=== PATIENT | female | born 1950 | race Caucasian/White ===

== ENCOUNTER 2023-09-07 15:07 | Emergency (ER) | payer OTHER, MEDICAID ==
[~2023-09-07] VITALS: Ht 154.9 cm; Wt 59.1 kg
[~2023-09-07 15:07] MED LIST: ALBU18HF12 IH; FLUT1BLS IH; FURO20 PO; OMEP20 PO; PEMB100V INJ; PRED-549 PO; PRED-554 PO
[2023-09-07 15:08] VITALS: BP 130/50; PULSE 99; RESP 20; TEMP 98.1
[2023-09-07] MEDS ORDERED: HYDR-4268 TP (17:51)
[2023-09-07] MEDS ORDERED: CEPH-558 PO (17:51)
[2023-09-07] MEDS ORDERED: PRED-554 PO (17:51)
[2023-09-07] MEDS: PredniSONE 20 MG TABLET PO ONE (17:54)
== END 2023-09-07 18:07 | disposition home or self-care (01) ==
LOC: EMS 15:13
DX: I77.6 Arteritis, unspecified (principal); R05.9 Cough, unspecified; J44.9 Chronic obstructive pulmonary disease, unspecified; Z85.118 Personal history of other malignant neoplasm of bronchus and lung
CPT/HCPCS: 99283; J7512

== ENCOUNTER 2023-10-01 20:00 | Inpatient (IN) | payer MEDICAID, OTHER ==
[~2023-10-01] VITALS: Ht 165.1 cm; Wt 54.9 kg
[~2023-10-01 20:00] MED LIST changes: +CEPH-558 PO; -FURO20 PO; +FURO20TA5 PO; +HYDR-4268 TP
[2023-10-01 20:57] LABS: BASOPHILS % (AUTO) 1.1 % (0.0-2.0); EOSINOPHILS % (AUTO) 0 % (1.0-6.0); HEMATOCRIT 39.9 % (36-46); HEMOGLOBIN 12.9 g/dL (12.0-16.0); LYMPHOCYTES # (AUTO) 1.3 K/uL (1.0-4.8); MEAN CORPUSCULAR HEMOGLOBIN 29.2 pg (26.0-34.0); MEAN CORPUSCULAR HGB CONC 32.3 G/dL (31.0-37.0); MEAN CORPUSCULAR VOLUME 90 fL (80-100); MONOCYTES # (AUTO) 1.7 K/uL (0.1-1.0); MONOCYTES % (AUTO) 11.7 % (2.0-9.0); NEUTROPHILS # (AUTO) 11.6 K/uL (1.8-7.7); NEUTROPHILS % (AUTO) 78.2 % (40.0-70.0); PLATELET COUNT (AUTO) 415 K/uL (150-450); RED BLOOD CELL COUNT(AUTO) 4.42 MIL/uL (4.00-5.20); RED CELL DISTRIBUTION WIDTH 14.3 % (11.5-14.5); WHITE BLOOD COUNT (AUTO) 14.9 K/uL (4.5-11.0)
[2023-10-01 21:06] LABS: CREATININE 0.92 mg/dL (0.60-1.30); POTASSIUM 3.5 mmol/L (3.5-5.1)
[2023-10-01] MEDS ORDERED: 0.9% SODIUM CHLORIDE 10 ML SYRINGE IVP PRN (22:45)
[2023-10-01 23:24] LABS: PROTHROMBIN TIME 10.3 SEC (9.4-11.6)
[2023-10-01 23:29] LABS: ALBUMIN 2.9 g/dL (3.4-5.0); BILIRUBIN,TOTAL 0.2 mg/dL (0.1-1.0); TOTAL PROTEIN, SERUM 7.1 g/dL (6.4-8.2)
[2023-10-01 23:54] LABS: LACTIC ACID 1.5 mmol/L (0.4-2.0)
[2023-10-02] MEDS: HEPARIN SODIUM,PORCINE 5,000 UNITS/ML VIAL SQ SCH
[2023-10-02] MEDS: HydrOXYzine HCL 25 MG TABLET PO ONE (00:57)
[2023-10-02] MEDS: MethylPREDNISolone SOD SUCC 125 MG/2 ML VIAL IVP SCH (00:57)
[2023-10-02] MEDS: SODIUM CHLORIDE 0.9% 1,150 ML IV ONE (00:57)
[2023-10-02] MEDS: PIPERACILLIN SODIUM/TAZOBACTAM 2.25 GM in DEXTROSE 5%-WATER 50 ML IV ONE (00:58)
[2023-10-02 02:30] VITALS: BP 125/71; PULSE 70; RESP 20; TEMP 98.3; O2SAT 92
[2023-10-02] MEDS: SODIUM CHLORIDE 0.9% 1,000 ML IV ONE ×3 (02:31→18:39)
[2023-10-02] MEDS: DiphenhydrAMINE HCL 50 MG/ML VIAL IVP PRN ×2 (02:32→14:57)
[2023-10-02] MEDS: MORPHINE SULFATE 2 MG/ML SYRINGE IVP PRN (02:33)
[2023-10-02 04:33] VITALS: BP 122/68; PULSE 81; RESP 20; TEMP 98.5; O2SAT 93
[2023-10-02 04:51] LABS: APPEARANCE,URINE HAZY (CLEAR); BILIRUBIN,URINE NEGATIVE (NEGATIVE); COLOR,URINE YELLOW (YELLOW); GLUCOSE, URINE (UA) TRACE mg/dL (NEGATIVE); KETONES,URINE NEGATIVE (NEGATIVE); LEUKOCYTE ESTERASE ,URINE TRACE (NEGATIVE); NITRATE,URINE NEGATIVE (NEGATIVE); OCCULT BLOOD,URINE SMALL (NEGATIVE); PROTEIN,URINE 30-70 mg/dL (NEGATIVE); SPECIFIC GRAVITIY, URINE 1.033 (1.003-1.030); UROBILINOGEN,URINE <=1.0 mg/dL (<=1.0)
[2023-10-02 04:53] LABS: BACTERIA,URINE None Seen /HPF (None Seen); RBC,URINE 0-2 /HPF (0-2); SQUAMOUS EPITHELIAL CELL,UR Few /LPF (None Seen); WBC,URINE 0-2 /HPF (0-5)
[2023-10-02 08:22] VITALS: BP 154/71; PULSE 92; RESP 16; TEMP 98.1; O2SAT 85
[2023-10-02] MEDS: FAMOTIDINE 20 MG TABLET PO SCH (08:25)
[2023-10-02 08:30] VITALS: O2SAT 95
[2023-10-02] MEDS: DiphenhydrAMINE HCL 50 MG/ML VIAL IVP ONE (08:40)
[2023-10-02] MEDS: DOCUSATE SODIUM 100 MG CAPSULE PO SCH (09:00)
[2023-10-02] MEDS: NYSTATIN 30 GM CREAM TP SCH (11:00)
[2023-10-02] MEDS ORDERED: DiphenhydrAMINE HCL 50 MG/ML VIAL IVP PRN (12:30)
[2023-10-02] MEDS: VITAMINS A & D 113 GM OINTMENT TP SCH (14:57)
[2023-10-02] MEDS: MINERAL OIL/PETROLATUM 120 GM CREAM TP SCH (14:57)
[2023-10-02 15:06] VITALS: BP 134/59; PULSE 76; RESP 16; TEMP 97.5; O2SAT 100
[2023-10-02] MEDS: POTASSIUM CHLORIDE 20 MEQ ER TABLET PO ONE (18:39)
[2023-10-02] MEDS: ALBUTEROL SULFATE HFA 90 MCG/PUFF 8 GM INHALER IH PRN (19:09)
[2023-10-02 19:14] VITALS: BP 114/59; PULSE 85; RESP 18; TEMP 98.2; O2SAT 98
[2023-10-03] VITALS (11 sets, daily range): BP systolic 129–154; BP diastolic 64–80; PULSE 72–96; RESP 17–24; TEMP 97.4–98.2; O2SAT 95–100
[2023-10-03 07:04] LABS: BASOPHILS % (AUTO) 0.1 % (0.0-2.0); EOSINOPHILS % (AUTO) 0 % (1.0-6.0); HEMATOCRIT 34.2 % (36-46); HEMOGLOBIN 10.9 g/dL (12.0-16.0); LYMPHOCYTES # (AUTO) 0.9 K/uL (1.0-4.8); LYMPHOCYTES % (AUTO) 11.4 % (22.0-44.0); MEAN CORPUSCULAR HEMOGLOBIN 29.1 pg (26.0-34.0); MEAN CORPUSCULAR HGB CONC 31.9 G/dL (31.0-37.0); MEAN CORPUSCULAR VOLUME 91 fL (80-100); MONOCYTES # (AUTO) 0.8 K/uL (0.1-1.0); MONOCYTES % (AUTO) 10.6 % (2.0-9.0); NEUTROPHILS # (AUTO) 5.8 K/uL (1.8-7.7); NEUTROPHILS % (AUTO) 77.9 % (40.0-70.0); PLATELET COUNT (AUTO) 357 K/uL (150-450); RED BLOOD CELL COUNT(AUTO) 3.76 MIL/uL (4.00-5.20); RED CELL DISTRIBUTION WIDTH 14.4 % (11.5-14.5); WHITE BLOOD COUNT (AUTO) 7.5 K/uL (4.5-11.0)
[2023-10-03 07:20] LABS: ANION GAP 4 mmol/L (8-16); CALCIUM, TOTAL 8.2 mg/dL (8.8-10.5); CARBON DIOXIDE 30 mmol/L (22-29); CHLORIDE 109 mmol/L (98-107); CREATININE 0.64 mg/dL (0.60-1.30); GLOMERULAR FILTR. RATE CALC > 60 mL/min (>60); GLUCOSE,RANDOM 156 mg/dL (70-110); POTASSIUM 4.6 mmol/L (3.5-5.1); SODIUM SERUM 143 mmol/L (136-145); UREA NITROGEN, BLOOD 16 mg/dL (7-18)
[2023-10-03] MEDS: ACETAMINOPHEN 325 MG TABLET PO PRN (08:41)
[2023-10-03] MEDS: IPRATROPIUM BROMIDE 0.5 MG/2.5 ML NEB SOLUTION NEB PRN (10:03)
[2023-10-03] MEDS: BUDESONIDE 0.5 MG/2 ML NEB SOLUTION NEB SCH (10:03)
[2023-10-03] MEDS: ALBUTEROL SULFATE 2.5 MG/0.5 ML NEB SOLUTION NEB PRN (10:03)
[2023-10-03] MEDS ORDERED: BUDESONIDE 0.5 MG/2 ML NEB SOLUTION NEB SCH ×3 (10:45→12:00)
[2023-10-03 11:33] LABS: ABG BASE EXCESS 1.9 mmol/L (-2.0-3.0); ABG CARBOXYHEMOGLOBIN 0.2 % (0.0-1.5); ABG HCO3 25.7 mmol/L (22.0-26.0); ABG METHEMOGLOBIN 0.3 % (0.0-1.5); ABG OXYGEN CONTENT 16.2 mL/dL (15.0-23.0); ABG OXYGEN SATURATION 97.1 % (95.0-98.0); ABG OXYHEMOGLOBIN 96.6 % (94.0-100.0); ABG PCO2 47 mmHg (35-45); ABG PH 7.377 (7.35-7.450); ABG TOTAL HEMOGLOBIN 11.8 G/dL (12.0-18.0); PO2, ARTERIAL BG 97.4 mmHg (75.0-83.0); SOURCE, BLOOD GAS ARTERIAL; TEMPERATURE, FAHRENHEIT, BG 98.2 FAHREN (96.0-98.6)
[2023-10-03 11:34] LABS: O2 DEVICE,BLOOD GAS CANNULA (ROOM AIR); SITE, BLOOD GAS LFT BRACHIAL
[2023-10-04] VITALS (16 sets, daily range): BP systolic 121–152; BP diastolic 60–75; PULSE 75–115; RESP 18–38; TEMP 97.4–98.6; O2SAT 81–100
[2023-10-04 08:49] LABS: EOSINOPHILS % (AUTO) 0.1 % (1.0-6.0); HEMATOCRIT 35.4 % (36-46); HEMOGLOBIN 11.5 g/dL (12.0-16.0); LYMPHOCYTES # (AUTO) 0.7 K/uL (1.0-4.8); LYMPHOCYTES % (AUTO) 7.2 % (22.0-44.0); MEAN CORPUSCULAR HEMOGLOBIN 29.5 pg (26.0-34.0); MEAN CORPUSCULAR HGB CONC 32.4 G/dL (31.0-37.0); MEAN CORPUSCULAR VOLUME 91 fL (80-100); MONOCYTES # (AUTO) 1.3 K/uL (0.1-1.0); MONOCYTES % (AUTO) 12.9 % (2.0-9.0); NEUTROPHILS # (AUTO) 8.2 K/uL (1.8-7.7); NEUTROPHILS % (AUTO) 79.8 % (40.0-70.0); PLATELET COUNT (AUTO) 370 K/uL (150-450); RED CELL DISTRIBUTION WIDTH 14.5 % (11.5-14.5); WHITE BLOOD COUNT (AUTO) 10.3 K/uL (4.5-11.0)
[2023-10-04 09:08] LABS: ANION GAP 7 mmol/L (8-16); CALCIUM, TOTAL 8.7 mg/dL (8.8-10.5); CARBON DIOXIDE 32 mmol/L (22-29); CHLORIDE 104 mmol/L (98-107); CREATININE 0.53 mg/dL (0.60-1.30); GLOMERULAR FILTR. RATE CALC > 60 mL/min (>60); GLUCOSE,RANDOM 146 mg/dL (70-110); POTASSIUM 4.9 mmol/L (3.5-5.1); SODIUM SERUM 143 mmol/L (136-145); UREA NITROGEN, BLOOD 17 mg/dL (7-18)
[2023-10-04] MEDS: OxyCODONE HCL/ACETAMINOPHEN 5-325 MG TABLET PO PRN ×2 (11:47→18:48)
[2023-10-04 16:21] LABS: GLUCOMETER DEV NAME(LOC) 5S.2D; GLUCOSE,POINT OF CARE 158 MG/DL (70-110)
[2023-10-04 17:19] LABS: ABG A-A DIFF O2 278.5 mmHg (10-20.0); ABG BASE EXCESS 11.8 mmol/L (-2.0-3.0); ABG CARBOXYHEMOGLOBIN 0.6 % (0.0-1.5); ABG HCO3 33.7 mmol/L (22.0-26.0); ABG METHEMOGLOBIN 0.3 % (0.0-1.5); ABG OXYGEN CONTENT 17.3 mL/dL (15.0-23.0); ABG OXYGEN SATURATION 97.2 % (95.0-98.0); ABG OXYHEMOGLOBIN 96.3 % (94.0-100.0); ABG PCO2 54 mmHg (35-45); ABG TOTAL HEMOGLOBIN 12.7 G/dL (12.0-18.0); ALLEN TEST, BLOOD GAS Positive; O2 DEVICE,BLOOD GAS HI FL CANNULA (ROOM AIR); PO2, ARTERIAL BG 90.4 mmHg (75.0-83.0); SITE, BLOOD GAS RT RADIAL; SOURCE, BLOOD GAS ARTERIAL
[2023-10-04] MEDS: MORPHINE SULFATE 2 MG/ML SYRINGE IVP PRN (21:41)
[2023-10-05] VITALS (11 sets, daily range): BP systolic 119–150; BP diastolic 68–90; PULSE 82–190; RESP 18–30; TEMP 97.9–98.8; O2SAT 80–100
[2023-10-05 06:12] LABS: BASOPHILS % (AUTO) 0.1 % (0.0-2.0); EOSINOPHILS % (AUTO) 0.1 % (1.0-6.0); HEMATOCRIT 37.4 % (36-46); HEMOGLOBIN 11.9 g/dL (12.0-16.0); LYMPHOCYTES # (AUTO) 0.6 K/uL (1.0-4.8); LYMPHOCYTES % (AUTO) 5.3 % (22.0-44.0); MEAN CORPUSCULAR HGB CONC 31.8 G/dL (31.0-37.0); MEAN CORPUSCULAR VOLUME 91 fL (80-100); MONOCYTES # (AUTO) 0.7 K/uL (0.1-1.0); MONOCYTES % (AUTO) 6.5 % (2.0-9.0); NEUTROPHILS # (AUTO) 9.8 K/uL (1.8-7.7); PLATELET COUNT (AUTO) 358 K/uL (150-450); RED BLOOD CELL COUNT(AUTO) 4.11 MIL/uL (4.00-5.20); RED CELL DISTRIBUTION WIDTH 14.1 % (11.5-14.5); WHITE BLOOD COUNT (AUTO) 11.2 K/uL (4.5-11.0)
[2023-10-05] MEDS ORDERED: DIGOXIN 250 MCG/ML 2 ML AMP ONE (06:13)
[2023-10-05 06:23] LABS: B-TYPE NATRIURETIC PEPTIDE 991 pg/mL (0-100)
[2023-10-05 06:24] LABS: ANION GAP 3 mmol/L (8-16); CALCIUM, TOTAL 8.3 mg/dL (8.8-10.5); CARBON DIOXIDE 38 mmol/L (22-29); CHLORIDE 101 mmol/L (98-107); GLOMERULAR FILTR. RATE CALC > 60 mL/min (>60); GLUCOSE,RANDOM 194 mg/dL (70-110); POTASSIUM 4.6 mmol/L (3.5-5.1); SODIUM SERUM 142 mmol/L (136-145); UREA NITROGEN, BLOOD 17 mg/dL (7-18)
[2023-10-05 06:28] LABS: CREATINE KINASE, TOTAL ONLY 59 U/L (26-192)
[2023-10-05 06:32] LABS: TROPONIN I-HIGH SENSITIVITY 33 ng/L (<51)
[2023-10-05] MEDS: DIGOXIN 250 MCG/ML 2 ML AMP IVP ONE ×2 (06:32→12:24)
[2023-10-05] MEDS: DILTIAZEM HCL 5 MG/ML 5 ML VIAL IVP ONE (06:32)
[2023-10-05 06:57] LABS: RBC MORPHOLOGY COMMENT NORMAL RBC MORPH
[2023-10-05] MEDS: AMIODARONE HCL 150 MG in DEXTROSE 5%-WATER 97 ML IV ONE (07:17)
[2023-10-05] MEDS: AMIODARONE HCL 360 MG in DEXTROSE 5%-WATER 242.8 ML IV ONE (07:27)
[2023-10-05 08:08] LABS: INR 1.1 (0.9-1.1); PROTHROMBIN TIME 11.2 SEC (9.4-11.6)
[2023-10-05] MEDS: LORazepam 2 MG/ML VIAL IVP PRN (11:08)
[2023-10-05] MEDS: AMIODARONE HCL 540 MG in DEXTROSE 5%-WATER 239.2 ML IV ONE (14:08)
[2023-10-06] VITALS (11 sets, daily range): BP systolic 107–159; BP diastolic 48–92; PULSE 150–159; RESP 22–44; TEMP 98–99; O2SAT 85–100
[2023-10-06 05:56] LABS: BASOPHILS % (AUTO) 0.1 % (0.0-2.0); EOSINOPHILS % (AUTO) 0.1 % (1.0-6.0); HEMATOCRIT 39.3 % (36-46); HEMOGLOBIN 12.7 g/dL (12.0-16.0); LYMPHOCYTES # (AUTO) 0.7 K/uL (1.0-4.8); LYMPHOCYTES % (AUTO) 5.9 % (22.0-44.0); MEAN CORPUSCULAR HEMOGLOBIN 29.2 pg (26.0-34.0); MEAN CORPUSCULAR HGB CONC 32.4 G/dL (31.0-37.0); MEAN CORPUSCULAR VOLUME 90 fL (80-100); MONOCYTES # (AUTO) 1.2 K/uL (0.1-1.0); MONOCYTES % (AUTO) 10.7 % (2.0-9.0); NEUTROPHILS # (AUTO) 9.6 K/uL (1.8-7.7); NEUTROPHILS % (AUTO) 83.2 % (40.0-70.0); PLATELET COUNT (AUTO) 336 K/uL (150-450); RED BLOOD CELL COUNT(AUTO) 4.37 MIL/uL (4.00-5.20); RED CELL DISTRIBUTION WIDTH 14.1 % (11.5-14.5); WHITE BLOOD COUNT (AUTO) 11.6 K/uL (4.5-11.0)
[2023-10-06 06:21] LABS: ALANINE AMINOTRANSFERASE 63 U/L (12-78); ALBUMIN 2.2 g/dL (3.4-5.0); ALKALINE PHOSPHATASE 104 U/L (46-116); ANION GAP 1 mmol/L (8-16); ASPARTATE AMINOTRANSFERASE 23 U/L (15-37); BILIRUBIN,TOTAL 0.5 mg/dL (0.1-1.0); CALCIUM, TOTAL 8.5 mg/dL (8.8-10.5); CARBON DIOXIDE 37 mmol/L (22-29); CHLORIDE 100 mmol/L (98-107); CREATININE 0.63 mg/dL (0.60-1.30); GLOMERULAR FILTR. RATE CALC > 60 mL/min (>60); GLUCOSE,RANDOM 162 mg/dL (70-110); MAGNESIUM 2.4 mg/dL (1.80-2.40); PHOSPHORUS 2.8 mg/dL (2.5-4.9); POTASSIUM 4.4 mmol/L (3.5-5.1); SODIUM SERUM 138 mmol/L (136-145); TOTAL PROTEIN, SERUM 6.4 g/dL (6.4-8.2); UREA NITROGEN, BLOOD 16 mg/dL (7-18)
[2023-10-06] MEDS: AMIODARONE HCL 750 MG in DEXTROSE 5%-WATER 485 ML IV SCH (07:15)
[2023-10-06] MEDS: DILTIAZEM HCL 5 MG/ML 5 ML VIAL IVP ONE (13:17)
[2023-10-06] MEDS: CefTRIAXone 1 GM/DEXTROSE 50 ML IV SCH (13:18)
[2023-10-06] MEDS: AZITHROMYCIN 500 MG/NS 250 ML IV SCH (15:31)
[2023-10-06] MEDS: LEVALBUTEROL 1.25 MG/0.5 ML NEB SOLUTION NEB PRN (20:46)
[2023-10-06] MEDS: ALPRAZolam 1 MG TABLET PO PRN (22:03)
[2023-10-06 23:48] LABS: TROPONIN I-HIGH SENSITIVITY 78 ng/L (<51)
[2023-10-07] VITALS (10 sets, daily range): BP systolic 116–151; BP diastolic 67–92; PULSE 74–159; RESP 24–34; TEMP 97.5–100.2; O2SAT 91–100
[2023-10-07 06:16] LABS: EOSINOPHILS % (AUTO) 0 % (1.0-6.0); HEMATOCRIT 39.6 % (36-46); HEMOGLOBIN 12.5 g/dL (12.0-16.0); LYMPHOCYTES # (AUTO) 0.3 K/uL (1.0-4.8); LYMPHOCYTES % (AUTO) 2.3 % (22.0-44.0); MEAN CORPUSCULAR HEMOGLOBIN 28.8 pg (26.0-34.0); MEAN CORPUSCULAR HGB CONC 31.5 G/dL (31.0-37.0); MEAN CORPUSCULAR VOLUME 91 fL (80-100); MONOCYTES # (AUTO) 1.1 K/uL (0.1-1.0); MONOCYTES % (AUTO) 9.5 % (2.0-9.0); PLATELET COUNT (AUTO) 301 K/uL (150-450); RED BLOOD CELL COUNT(AUTO) 4.33 MIL/uL (4.00-5.20); RED CELL DISTRIBUTION WIDTH 14.2 % (11.5-14.5); WHITE BLOOD COUNT (AUTO) 11.3 K/uL (4.5-11.0)
[2023-10-07] MEDS: DIGOXIN 250 MCG/ML 2 ML AMP IVP ONE (06:18)
[2023-10-07 06:32] LABS: ANION GAP 3 mmol/L (8-16); CALCIUM, TOTAL 8.6 mg/dL (8.8-10.5); CARBON DIOXIDE 38 mmol/L (22-29); CHLORIDE 101 mmol/L (98-107); CREATININE 0.59 mg/dL (0.60-1.30); GLOMERULAR FILTR. RATE CALC > 60 mL/min (>60); GLUCOSE,RANDOM 214 mg/dL (70-110); POTASSIUM 4.7 mmol/L (3.5-5.1); SODIUM SERUM 142 mmol/L (136-145); UREA NITROGEN, BLOOD 18 mg/dL (7-18)
[2023-10-07 06:55] LABS: NEUTROPHILS % (AUTO) 88.2 % (40.0-70.0)
[2023-10-07] MEDS: METOPROLOL TARTRATE 5 MG/5 ML VIAL IVP ONE (08:48)
[2023-10-07] MEDS: DILTIAZEM HCL 125 MG in DEXTROSE 5%-WATER 100 ML IV PRN (08:52)
[2023-10-07] MEDS ORDERED: DEXMEDETOMIDINE HCL 400 MCG in SODIUM CHLORIDE 0.9% 96 ML IV PRN (09:30)
[2023-10-08] VITALS (10 sets, daily range): BP systolic 129–158; BP diastolic 50–78; PULSE 78–91; RESP 20–40; TEMP 97.7–98.8; O2SAT 92–99
[2023-10-08 06:03] LABS: ANION GAP 3 mmol/L (8-16); CALCIUM, TOTAL 8.2 mg/dL (8.8-10.5); CARBON DIOXIDE 40 mmol/L (22-29); CHLORIDE 99 mmol/L (98-107); CREATININE 0.53 mg/dL (0.60-1.30); GLOMERULAR FILTR. RATE CALC > 60 mL/min (>60); GLUCOSE,RANDOM 198 mg/dL (70-110); POTASSIUM 4.5 mmol/L (3.5-5.1); SODIUM SERUM 142 mmol/L (136-145); UREA NITROGEN, BLOOD 16 mg/dL (7-18)
[2023-10-08 06:08] LABS: BASOPHILS % (AUTO) 0.1 % (0.0-2.0); EOSINOPHILS % (AUTO) 0 % (1.0-6.0); HEMATOCRIT 40.8 % (36-46); LYMPHOCYTES # (AUTO) 0.2 K/uL (1.0-4.8); LYMPHOCYTES % (AUTO) 2.1 % (22.0-44.0); MEAN CORPUSCULAR HEMOGLOBIN 29.2 pg (26.0-34.0); MEAN CORPUSCULAR HGB CONC 31.8 G/dL (31.0-37.0); MEAN CORPUSCULAR VOLUME 92 fL (80-100); MONOCYTES # (AUTO) 0.9 K/uL (0.1-1.0); MONOCYTES % (AUTO) 7.5 % (2.0-9.0); NEUTROPHILS # (AUTO) 10.6 K/uL (1.8-7.7); NEUTROPHILS % (AUTO) 90.3 % (40.0-70.0); PLATELET COUNT (AUTO) 306 K/uL (150-450); RED BLOOD CELL COUNT(AUTO) 4.45 MIL/uL (4.00-5.20); RED CELL DISTRIBUTION WIDTH 14.5 % (11.5-14.5); WHITE BLOOD COUNT (AUTO) 11.7 K/uL (4.5-11.0)
[2023-10-08] MEDS: AMIODARONE HCL 200 MG TABLET PO SCH (08:22)
[2023-10-08] MEDS: METOPROLOL TARTRATE 25 MG TABLET PO SCH (10:43)
[2023-10-08] MEDS: FUROSEMIDE 20 MG/2 ML VIAL IVP ONE (10:43)
[2023-10-08] MEDS: DOXYCYCLINE HYCLATE 100 MG TABLET PO SCH (20:24)
[2023-10-09] VITALS (11 sets, daily range): BP systolic 143–175; BP diastolic 68–99; PULSE 58–95; RESP 16–33; TEMP 97.5–99; O2SAT 86–99
[2023-10-09 06:04] LABS: EOSINOPHILS % (AUTO) 0 % (1.0-6.0); HEMATOCRIT 39.8 % (36-46); HEMOGLOBIN 12.6 g/dL (12.0-16.0); LYMPHOCYTES # (AUTO) 0.2 K/uL (1.0-4.8); LYMPHOCYTES % (AUTO) 1.7 % (22.0-44.0); MEAN CORPUSCULAR HEMOGLOBIN 28.8 pg (26.0-34.0); MEAN CORPUSCULAR HGB CONC 31.7 G/dL (31.0-37.0); MEAN CORPUSCULAR VOLUME 91 fL (80-100); MONOCYTES % (AUTO) 7.4 % (2.0-9.0); NEUTROPHILS # (AUTO) 12.7 K/uL (1.8-7.7); PLATELET COUNT (AUTO) 292 K/uL (150-450); RED BLOOD CELL COUNT(AUTO) 4.39 MIL/uL (4.00-5.20); RED CELL DISTRIBUTION WIDTH 14.1 % (11.5-14.5); WHITE BLOOD COUNT (AUTO) 13.9 K/uL (4.5-11.0)
[2023-10-09 06:05] LABS: NEUTROPHILS % (AUTO) 90.9 % (40.0-70.0)
[2023-10-09 06:10] LABS: ANION GAP 0 mmol/L (8-16); CALCIUM, TOTAL 8.5 mg/dL (8.8-10.5); CARBON DIOXIDE 40 mmol/L (22-29); CHLORIDE 101 mmol/L (98-107); CREATININE 0.47 mg/dL (0.60-1.30); DIGOXIN 0.68 ng/mL (0.90-2.00); GLOMERULAR FILTR. RATE CALC > 60 mL/min (>60); GLUCOSE,RANDOM 201 mg/dL (70-110); POTASSIUM 4.3 mmol/L (3.5-5.1); SODIUM SERUM 141 mmol/L (136-145); UREA NITROGEN, BLOOD 17 mg/dL (7-18)
[2023-10-09 06:26] LABS: TROPONIN I-HIGH SENSITIVITY 78 ng/L (<51)
[2023-10-09] MEDS: METOPROLOL TARTRATE 50 MG TABLET PO SCH (08:23)
[2023-10-09] MEDS ORDERED: DILTIAZEM HCL 125 MG in DEXTROSE 5%-WATER 100 ML IV PRN (08:25)
[2023-10-09] MEDS ORDERED: DILTIAZEM HCL 125 MG in DEXTROSE 5%-WATER 100 ML IV SCH (08:45)
[2023-10-09] MEDS: MethylPREDNISolone SOD SUCC 125 MG/2 ML VIAL IVP SCH (15:43)
[2023-10-10] VITALS (13 sets, daily range): BP systolic 144–170; BP diastolic 77–98; PULSE 63–130; RESP 18–26; TEMP 97.8–98.2; O2SAT 88–97
[2023-10-10] MEDS: DILTIAZEM HCL 5 MG/ML 5 ML VIAL IVP ONE (00:09)
[2023-10-10 06:59] LABS: BASOPHILS % (AUTO) 0.2 % (0.0-2.0); EOSINOPHILS % (AUTO) 0 % (1.0-6.0); HEMATOCRIT 37.3 % (36-46); HEMOGLOBIN 11.8 g/dL (12.0-16.0); LYMPHOCYTES # (AUTO) 0.3 K/uL (1.0-4.8); LYMPHOCYTES % (AUTO) 1.9 % (22.0-44.0); MEAN CORPUSCULAR HEMOGLOBIN 28.7 pg (26.0-34.0); MEAN CORPUSCULAR HGB CONC 31.5 G/dL (31.0-37.0); MEAN CORPUSCULAR VOLUME 91 fL (80-100); MONOCYTES # (AUTO) 0.7 K/uL (0.1-1.0); MONOCYTES % (AUTO) 5.6 % (2.0-9.0); NEUTROPHILS # (AUTO) 12.2 K/uL (1.8-7.7); PLATELET COUNT (AUTO) 261 K/uL (150-450); RED BLOOD CELL COUNT(AUTO) 4.11 MIL/uL (4.00-5.20); RED CELL DISTRIBUTION WIDTH 14.6 % (11.5-14.5); WHITE BLOOD COUNT (AUTO) 13.2 K/uL (4.5-11.0)
[2023-10-10 07:06] LABS: NEUTROPHILS % (AUTO) 92.3 % (40.0-70.0)
[2023-10-10 07:24] LABS: ANION GAP 0 mmol/L (8-16); CALCIUM, TOTAL 8.6 mg/dL (8.8-10.5); CHLORIDE 100 mmol/L (98-107); CREATININE 0.59 mg/dL (0.60-1.30); GLOMERULAR FILTR. RATE CALC > 60 mL/min (>60); GLUCOSE,RANDOM 206 mg/dL (70-110); POTASSIUM 4.2 mmol/L (3.5-5.1); SODIUM SERUM 142 mmol/L (136-145); UREA NITROGEN, BLOOD 20 mg/dL (7-18)
[2023-10-10 07:28] LABS: CARBON DIOXIDE 42 mmol/L (22-29)
[2023-10-10] MEDS: DILTIAZEM HCL CD 120 MG ER CAPSULE PO SCH (08:26)
[2023-10-10] MEDS: AMIODARONE HCL 200 MG TABLET PO SCH (08:36)
[2023-10-10] MEDS ORDERED: SODIUM CHLORIDE 0.9% 250 ML IV ONE (13:12)
[2023-10-11] VITALS (15 sets, daily range): BP systolic 155–169; BP diastolic 66–98; PULSE 80–116; RESP 17–23; TEMP 98–98.5; O2SAT 91–96
[2023-10-11] MEDS: METOPROLOL TARTRATE 50 MG TABLET PO SCH (08:51)
[2023-10-11 09:15] LABS: HEMATOCRIT 39.3 % (36-46); HEMOGLOBIN 12.5 g/dL (12.0-16.0); MEAN CORPUSCULAR HEMOGLOBIN 29.1 pg (26.0-34.0); MEAN CORPUSCULAR HGB CONC 31.9 G/dL (31.0-37.0); MEAN CORPUSCULAR VOLUME 91 fL (80-100); PLATELET COUNT (AUTO) 265 K/uL (150-450); RED BLOOD CELL COUNT(AUTO) 4.31 MIL/uL (4.00-5.20); RED CELL DISTRIBUTION WIDTH 14.1 % (11.5-14.5); WHITE BLOOD COUNT (AUTO) 17.7 K/uL (4.5-11.0)
[2023-10-11 09:56] LABS: ALANINE AMINOTRANSFERASE 42 U/L (12-78); ALKALINE PHOSPHATASE 87 U/L (46-116); ANION GAP 5 mmol/L (8-16); ASPARTATE AMINOTRANSFERASE 20 U/L (15-37); BILIRUBIN,TOTAL 0.3 mg/dL (0.1-1.0); CALCIUM, TOTAL 8.5 mg/dL (8.8-10.5); CARBON DIOXIDE 36 mmol/L (22-29); CHLORIDE 101 mmol/L (98-107); CREATININE 0.78 mg/dL (0.60-1.30); GLOMERULAR FILTR. RATE CALC > 60 mL/min (>60); GLUCOSE,RANDOM 332 mg/dL (70-110); POTASSIUM 4.3 mmol/L (3.5-5.1); SODIUM SERUM 142 mmol/L (136-145); TOTAL PROTEIN, SERUM 5.9 g/dL (6.4-8.2); UREA NITROGEN, BLOOD 21 mg/dL (7-18)
[2023-10-11 10:03] LABS: BAND NEUTROPHILS % (MANUAL) 1 % (0-5); LYMPHOCYTES % (MANUAL) 4 % (22-44); METAMYELOCYTES % 3 % (0-0); MONOCYTES % (MANUAL) 5 % (2-9); MYELOCYTES % 1 % (0-0); SEGMENTED NEUTROPHILS % 86 % (40-70); TOTAL CELLS COUNTED 100
[2023-10-11] MEDS: DILTIAZEM HCL 5 MG/ML 5 ML VIAL IVP ONE (10:05)
[2023-10-12] VITALS (11 sets, daily range): BP systolic 134–145; BP diastolic 74–84; PULSE 75–89; RESP 18–22; TEMP 97.6–98.2; O2SAT 89–96
[2023-10-12] MEDS: ONDANSETRON HCL 4 MG/2 ML VIAL IVP PRN (08:36)
[2023-10-12] MEDS: OxyCODONE HCL/ACETAMINOPHEN 5-325 MG TABLET PO PRN (09:17)
[2023-10-12 09:46] LABS: BASOPHILS % (AUTO) 0.1 % (0.0-2.0); EOSINOPHILS % (AUTO) 0 % (1.0-6.0); HEMOGLOBIN 12.7 g/dL (12.0-16.0); LYMPHOCYTES # (AUTO) 0.6 K/uL (1.0-4.8); LYMPHOCYTES % (AUTO) 3.1 % (22.0-44.0); MEAN CORPUSCULAR HGB CONC 31.8 G/dL (31.0-37.0); MEAN CORPUSCULAR VOLUME 91 fL (80-100); MONOCYTES # (AUTO) 0.8 K/uL (0.1-1.0); MONOCYTES % (AUTO) 4.3 % (2.0-9.0); NEUTROPHILS # (AUTO) 17.1 K/uL (1.8-7.7); PLATELET COUNT (AUTO) 239 K/uL (150-450); RED BLOOD CELL COUNT(AUTO) 4.37 MIL/uL (4.00-5.20); RED CELL DISTRIBUTION WIDTH 14.1 % (11.5-14.5); WHITE BLOOD COUNT (AUTO) 18.4 K/uL (4.5-11.0)
[2023-10-12 09:47] LABS: NEUTROPHILS % (AUTO) 92.5 % (40.0-70.0)
[2023-10-12 09:50] LABS: ANION GAP 6 mmol/L (8-16); CALCIUM, TOTAL 8.3 mg/dL (8.8-10.5); CARBON DIOXIDE 36 mmol/L (22-29); CHLORIDE 101 mmol/L (98-107); GLOMERULAR FILTR. RATE CALC > 60 mL/min (>60); GLUCOSE,RANDOM 374 mg/dL (70-110); POTASSIUM 4.3 mmol/L (3.5-5.1); SODIUM SERUM 143 mmol/L (136-145); UREA NITROGEN, BLOOD 21 mg/dL (7-18)
[2023-10-12] MEDS: FUROSEMIDE 40 MG/4 ML VIAL IVP ONE (12:10)
[2023-10-12 15:20] LABS: APPEARANCE,URINE CLEAR (CLEAR); BILIRUBIN,URINE NEGATIVE (NEGATIVE); COLOR,URINE COLORLESS (YELLOW); GLUCOSE, URINE (UA) 300-500 mg/dL (NEGATIVE); KETONES,URINE NEGATIVE (NEGATIVE); LEUKOCYTE ESTERASE ,URINE NEGATIVE (NEGATIVE); NITRATE,URINE NEGATIVE (NEGATIVE); OCCULT BLOOD,URINE NEGATIVE (NEGATIVE); PH,URINE 6.5 (5.0-8.0); PROTEIN,URINE NEGATIVE (NEGATIVE); SPECIFIC GRAVITIY, URINE 1.009 (1.003-1.030); UROBILINOGEN,URINE <=1.0 mg/dL (<=1.0)
[2023-10-12 15:31] LABS: BACTERIA,URINE Rare /HPF (None Seen); RBC,URINE 0-2 /HPF (0-2); SQUAMOUS EPITHELIAL CELL,UR Few /LPF (None Seen); WBC,URINE 0-2 /HPF (0-5)
[2023-10-12] MEDS: APIXABAN 5 MG TABLET PO SCH (20:58)
[2023-10-13] VITALS (10 sets, daily range): BP systolic 109–146; BP diastolic 61–80; PULSE 51–89; RESP 18–22; TEMP 97.5–98.5; O2SAT 91–97
[2023-10-13 07:17] LABS: HEMATOCRIT 38.7 % (36-46); HEMOGLOBIN 12.5 g/dL (12.0-16.0); MEAN CORPUSCULAR HGB CONC 32.2 G/dL (31.0-37.0); MEAN CORPUSCULAR VOLUME 90 fL (80-100); PLATELET COUNT (AUTO) 236 K/uL (150-450); RED CELL DISTRIBUTION WIDTH 13.9 % (11.5-14.5); WHITE BLOOD COUNT (AUTO) 23.5 K/uL (4.5-11.0)
[2023-10-13 07:27] LABS: ANION GAP 0 mmol/L (8-16); CALCIUM, TOTAL 8.5 mg/dL (8.8-10.5); CHLORIDE 100 mmol/L (98-107); GLOMERULAR FILTR. RATE CALC > 60 mL/min (>60); GLUCOSE,RANDOM 179 mg/dL (70-110); POTASSIUM 4.2 mmol/L (3.5-5.1); SODIUM SERUM 142 mmol/L (136-145); UREA NITROGEN, BLOOD 25 mg/dL (7-18)
[2023-10-13 07:33] LABS: CARBON DIOXIDE 42 mmol/L (22-29)
[2023-10-13 08:03] LABS: BAND NEUTROPHILS % (MANUAL) 9 % (0-5); LYMPHOCYTES % (MANUAL) 11 % (22-44); MONOCYTES % (MANUAL) 5 % (2-9); SEGMENTED NEUTROPHILS % 75 % (40-70); TOTAL CELLS COUNTED 100
[2023-10-13] MEDS: MethylPREDNISolone SOD SUCC 125 MG/2 ML VIAL IVP SCH (08:11)
[2023-10-13] MEDS: FUROSEMIDE 20 MG/2 ML VIAL IVP SCH (10:29)
[2023-10-13] MEDS: DILTIAZEM HCL 5 MG/ML 5 ML VIAL IVP ONE (10:29)
[2023-10-13] MEDS: AcetaZOLAMIDE SODIUM 500 MG VIAL IVP ONE (10:40)
[2023-10-14] VITALS (9 sets, daily range): BP systolic 117–134; BP diastolic 65–71; PULSE 55–73; RESP 18–22; TEMP 97.8–98.2; O2SAT 90–97
[2023-10-14 07:06] LABS: ANION GAP 0 mmol/L (8-16); CALCIUM, TOTAL 8.6 mg/dL (8.8-10.5); CARBON DIOXIDE 40 mmol/L (22-29); CHLORIDE 99 mmol/L (98-107); CREATININE 0.62 mg/dL (0.60-1.30); GLOMERULAR FILTR. RATE CALC > 60 mL/min (>60); GLUCOSE,RANDOM 153 mg/dL (70-110); POTASSIUM 4.2 mmol/L (3.5-5.1); SODIUM SERUM 139 mmol/L (136-145); UREA NITROGEN, BLOOD 30 mg/dL (7-18)
[2023-10-14] MEDS: METOPROLOL TARTRATE 50 MG TABLET PO SCH (09:00)
[2023-10-14] MEDS ORDERED: SODIUM CHLORIDE 0.9% 250 ML IV ONE (12:10)
[2023-10-15] VITALS (10 sets, daily range): BP systolic 118–148; BP diastolic 62–88; PULSE 59–78; RESP 18–20; TEMP 97.8–98.1; O2SAT 91–95
[2023-10-15 06:36] LABS: BASOPHILS % (AUTO) 0.2 % (0.0-2.0); EOSINOPHILS % (AUTO) 0.1 % (1.0-6.0); HEMATOCRIT 39.5 % (36-46); HEMOGLOBIN 12.5 g/dL (12.0-16.0); LYMPHOCYTES # (AUTO) 1.6 K/uL (1.0-4.8); LYMPHOCYTES % (AUTO) 5.7 % (22.0-44.0); MEAN CORPUSCULAR HEMOGLOBIN 28.7 pg (26.0-34.0); MEAN CORPUSCULAR HGB CONC 31.7 G/dL (31.0-37.0); MEAN CORPUSCULAR VOLUME 91 fL (80-100); MONOCYTES # (AUTO) 1.5 K/uL (0.1-1.0); MONOCYTES % (AUTO) 5.6 % (2.0-9.0); NEUTROPHILS # (AUTO) 24.2 K/uL (1.8-7.7); PLATELET COUNT (AUTO) 242 K/uL (150-450); RED BLOOD CELL COUNT(AUTO) 4.36 MIL/uL (4.00-5.20); RED CELL DISTRIBUTION WIDTH 13.8 % (11.5-14.5); WHITE BLOOD COUNT (AUTO) 27.4 K/uL (4.5-11.0)
[2023-10-15 06:55] LABS: ALANINE AMINOTRANSFERASE 35 U/L (12-78); ALBUMIN 1.9 g/dL (3.4-5.0); ALKALINE PHOSPHATASE 80 U/L (46-116); ANION GAP 6 mmol/L (8-16); ASPARTATE AMINOTRANSFERASE 17 U/L (15-37); BILIRUBIN,TOTAL 0.2 mg/dL (0.1-1.0); CALCIUM, TOTAL 8.6 mg/dL (8.8-10.5); CARBON DIOXIDE 37 mmol/L (22-29); CHLORIDE 98 mmol/L (98-107); CREATININE 0.64 mg/dL (0.60-1.30); GLOMERULAR FILTR. RATE CALC > 60 mL/min (>60); GLUCOSE,RANDOM 179 mg/dL (70-110); SODIUM SERUM 141 mmol/L (136-145); TOTAL PROTEIN, SERUM 5.8 g/dL (6.4-8.2); UREA NITROGEN, BLOOD 30 mg/dL (7-18)
[2023-10-15 07:07] LABS: NEUTROPHILS % (AUTO) 88.4 % (40.0-70.0)
[2023-10-15] MEDS: FUROSEMIDE 20 MG/2 ML VIAL IVP SCH (09:14)
[2023-10-15] MEDS: PredniSONE 20 MG TABLET PO SCH (09:15)
[2023-10-15] MEDS: FUROSEMIDE 20 MG TABLET PO SCH (20:12)
[2023-10-16] VITALS (14 sets, daily range): BP systolic 119–129; BP diastolic 58–84; PULSE 55–82; RESP 18–24; TEMP 97.4–98.4; O2SAT 80–95
[2023-10-16] MEDS: PredniSONE 20 MG TABLET PO SCH (08:10)
[2023-10-17] VITALS (10 sets, daily range): BP systolic 119–123; BP diastolic 65–80; PULSE 65–93; RESP 18–24; TEMP 97.6–98.8; O2SAT 88–97
[2023-10-17] MEDS: AMIODARONE HCL 200 MG TABLET PO SCH (08:31)
[2023-10-17] MEDS: ALBUTEROL SULFATE 2.5 MG/0.5 ML NEB SOLUTION NEB SCH (20:21)
[2023-10-17] MEDS: IPRATROPIUM BROMIDE 0.5 MG/2.5 ML NEB SOLUTION NEB SCH (20:21)
[2023-10-18] VITALS (11 sets, daily range): BP systolic 104–124; BP diastolic 52–74; PULSE 67–96; RESP 18–22; TEMP 92–98.4; O2SAT 91–98
[2023-10-18] MEDS: AMIODARONE HCL 200 MG TABLET PO SCH (07:58)
[2023-10-18 07:59] LABS: BASOPHILS % (AUTO) 0.1 % (0.0-2.0); EOSINOPHILS % (AUTO) 0.3 % (1.0-6.0); HEMATOCRIT 40.6 % (36-46); HEMOGLOBIN 12.9 g/dL (12.0-16.0); LYMPHOCYTES # (AUTO) 1.9 K/uL (1.0-4.8); LYMPHOCYTES % (AUTO) 6.3 % (22.0-44.0); MEAN CORPUSCULAR HEMOGLOBIN 28.5 pg (26.0-34.0); MEAN CORPUSCULAR HGB CONC 31.8 G/dL (31.0-37.0); MEAN CORPUSCULAR VOLUME 90 fL (80-100); MONOCYTES # (AUTO) 2.2 K/uL (0.1-1.0); MONOCYTES % (AUTO) 7.5 % (2.0-9.0); NEUTROPHILS # (AUTO) 25.6 K/uL (1.8-7.7); PLATELET COUNT (AUTO) 283 K/uL (150-450); RED BLOOD CELL COUNT(AUTO) 4.52 MIL/uL (4.00-5.20); WHITE BLOOD COUNT (AUTO) 29.9 K/uL (4.5-11.0)
[2023-10-18 08:08] LABS: NEUTROPHILS % (AUTO) 85.8 % (40.0-70.0)
[2023-10-18 09:09] LABS: RBC MORPHOLOGY COMMENT NORMAL RBC MORPH
[2023-10-19] VITALS (9 sets, daily range): BP systolic 107–127; BP diastolic 57–72; PULSE 58–82; RESP 18–32; TEMP 97.7–98.5; O2SAT 90–98
[2023-10-19] MEDS: BENZONATATE 100 MG CAPSULE PO PRN (23:54)
[2023-10-20] VITALS (13 sets, daily range): BP systolic 113–138; BP diastolic 66–79; PULSE 66–86; RESP 18–22; TEMP 97.8–98.2; O2SAT 86–99
[2023-10-20] MEDS: PredniSONE 10 MG TABLET PO SCH (08:51)
[2023-10-20 10:53] LABS: COVID AG,FIA SOURCE NASAL SWAB
[2023-10-20 11:51] LABS: SARS-COV2 (COVID) ANTIGEN,FIA Negative (Negative)
[2023-10-20 12:15] LABS: EOSINOPHILS % (AUTO) 0.3 % (1.0-6.0); HEMATOCRIT 36.5 % (36-46); HEMOGLOBIN 11.6 g/dL (12.0-16.0); LYMPHOCYTES # (AUTO) 0.9 K/uL (1.0-4.8); LYMPHOCYTES % (AUTO) 3.7 % (22.0-44.0); MEAN CORPUSCULAR HEMOGLOBIN 28.7 pg (26.0-34.0); MEAN CORPUSCULAR HGB CONC 31.7 G/dL (31.0-37.0); MEAN CORPUSCULAR VOLUME 90 fL (80-100); MONOCYTES # (AUTO) 1.2 K/uL (0.1-1.0); MONOCYTES % (AUTO) 4.9 % (2.0-9.0); NEUTROPHILS # (AUTO) 21.5 K/uL (1.8-7.7); PLATELET COUNT (AUTO) 243 K/uL (150-450); RED BLOOD CELL COUNT(AUTO) 4.05 MIL/uL (4.00-5.20); RED CELL DISTRIBUTION WIDTH 14.3 % (11.5-14.5); WHITE BLOOD COUNT (AUTO) 23.6 K/uL (4.5-11.0)
[2023-10-20 12:16] LABS: NEUTROPHILS % (AUTO) 91.1 % (40.0-70.0)
[2023-10-20 12:27] LABS: ANION GAP 4 mmol/L (8-16); CALCIUM, TOTAL 8.7 mg/dL (8.8-10.5); CARBON DIOXIDE 33 mmol/L (22-29); CHLORIDE 100 mmol/L (98-107); CREATININE 0.64 mg/dL (0.60-1.30); GLOMERULAR FILTR. RATE CALC > 60 mL/min (>60); GLUCOSE,RANDOM 163 mg/dL (70-110); POTASSIUM 3.8 mmol/L (3.5-5.1); SODIUM SERUM 137 mmol/L (136-145); UREA NITROGEN, BLOOD 28 mg/dL (7-18)
[2023-10-20 12:33] LABS: RBC MORPHOLOGY COMMENT NORMAL RBC MORPH
[2023-10-20] MEDS: GuaiFENesin/CODEINE [SUGAR-FREE] 200-20MG/10 ML LIQUID UDCUP PO PRN (16:34)
[2023-10-21] VITALS (13 sets, daily range): BP systolic 104–113; BP diastolic 58–67; PULSE 65–82; RESP 18–26; TEMP 98.1–98.3; O2SAT 90–100
[2023-10-21] MEDS: IPRATROPIUM BROMIDE 0.5 MG/2.5 ML NEB SOLUTION NEB PRN (16:42)
[2023-10-21] MEDS: ALBUTEROL SULFATE 2.5 MG/0.5 ML NEB SOLUTION NEB PRN (16:42)
[2023-10-22] VITALS (9 sets, daily range): BP systolic 110–116; BP diastolic 61–69; PULSE 60–70; RESP 18–26; TEMP 98–98.2; O2SAT 94–100
[2023-10-23] VITALS (10 sets, daily range): BP systolic 99–119; BP diastolic 54–69; PULSE 61–79; RESP 18–22; TEMP 97.7–98.4; O2SAT 93–100
[2023-10-24] VITALS (10 sets, daily range): BP systolic 122–126; BP diastolic 57–76; PULSE 72–96; RESP 17–20; TEMP 97.8–98.5; O2SAT 90–98
[2023-10-24] MEDS: MAGNESIUM HYDROXIDE SUSPENSION 30 ML UDCUP PO PRN (08:58)
[2023-10-25] VITALS (8 sets, daily range): BP systolic 100–124; BP diastolic 58–69; PULSE 71–86; RESP 18–20; TEMP 97.5–98.8; O2SAT 89–96
[2023-10-25] MEDS: BISACODYL 5 MG EC TABLET PO PRN (09:25)
[2023-10-25] MEDS: SODIUM PHOSPHATE,MONO-DIBASIC 133 ML ENEMA PR ONE (14:35)
[2023-10-26] VITALS (9 sets, daily range): BP systolic 108–118; BP diastolic 55–68; PULSE 72–83; RESP 18–22; TEMP 97.8–98; O2SAT 91–97
[2023-10-26] MEDS: SENNOSIDES 8.6 MG TABLET PO ONE (09:35)
[2023-10-27] VITALS (11 sets, daily range): BP systolic 103–111; BP diastolic 51–58; PULSE 70–98; RESP 18–20; TEMP 98–99.4; O2SAT 91–99
[2023-10-28] VITALS (8 sets, daily range): BP systolic 110–116; BP diastolic 54–66; PULSE 72–95; RESP 18–28; TEMP 97.8–98.4; O2SAT 93–100
[2023-10-28 08:08] LABS: BASOPHILS % (AUTO) 0.4 % (0.0-2.0); EOSINOPHILS % (AUTO) 1.6 % (1.0-6.0); HEMATOCRIT 32.8 % (36-46); HEMOGLOBIN 10.7 g/dL (12.0-16.0); LYMPHOCYTES # (AUTO) 1.8 K/uL (1.0-4.8); LYMPHOCYTES % (AUTO) 19.1 % (22.0-44.0); MEAN CORPUSCULAR HEMOGLOBIN 29.5 pg (26.0-34.0); MEAN CORPUSCULAR HGB CONC 32.8 G/dL (31.0-37.0); MEAN CORPUSCULAR VOLUME 90 fL (80-100); MONOCYTES # (AUTO) 0.7 K/uL (0.1-1.0); MONOCYTES % (AUTO) 7.5 % (2.0-9.0); NEUTROPHILS # (AUTO) 6.8 K/uL (1.8-7.7); NEUTROPHILS % (AUTO) 71.4 % (40.0-70.0); PLATELET COUNT (AUTO) 271 K/uL (150-450); RED BLOOD CELL COUNT(AUTO) 3.64 MIL/uL (4.00-5.20); WHITE BLOOD COUNT (AUTO) 9.6 K/uL (4.5-11.0)
[2023-10-28 08:15] LABS: ANION GAP 4 mmol/L (8-16); CALCIUM, TOTAL 7.9 mg/dL (8.8-10.5); CARBON DIOXIDE 34 mmol/L (22-29); CHLORIDE 101 mmol/L (98-107); CREATININE 0.38 mg/dL (0.60-1.30); GLOMERULAR FILTR. RATE CALC > 60 mL/min (>60); GLUCOSE,RANDOM 118 mg/dL (70-110); SODIUM SERUM 139 mmol/L (136-145); UREA NITROGEN, BLOOD 11 mg/dL (7-18)
[2023-10-28 09:01] LABS: POTASSIUM 2.8 mmol/L (3.5-5.1)
[2023-10-28] MEDS ORDERED: POTASSIUM CHL 10 MEQ/WATER 50 ML IV PRN (09:15)
[2023-10-28] MEDS: POTASSIUM CHLORIDE 20 MEQ ER TABLET PO PRN (09:36)
[2023-10-29] VITALS (8 sets, daily range): BP systolic 103–120; BP diastolic 48–62; PULSE 61–93; RESP 18–24; TEMP 97.9–99; O2SAT 93–100
[2023-10-30 04:45] VITALS: BP 107/59; PULSE 79; RESP 18; TEMP 98.6; O2SAT 96
[2023-10-30 07:29] VITALS: PULSE 87; RESP 28; O2SAT 96
[2023-10-30 07:38] VITALS: PULSE 88; RESP 24; O2SAT 99
[2023-10-30 08:00] VITALS: BP 115/69; PULSE 95; RESP 20; TEMP 98.1; O2SAT 96
[2023-10-30 14:30] VITALS: PULSE 103; RESP 28; O2SAT 91
[2023-10-30 20:06] VITALS: BP 116/61; PULSE 71; RESP 19; TEMP 97.8; O2SAT 97
[2023-10-31] VITALS (9 sets, daily range): BP systolic 99–131; BP diastolic 47–83; PULSE 72–111; RESP 18–28; TEMP 97.6–98.3; O2SAT 95–98
[2023-10-31 14:49] LABS: BASOPHILS % (AUTO) 0.3 % (0.0-2.0); EOSINOPHILS % (AUTO) 0.5 % (1.0-6.0); HEMATOCRIT 34.8 % (36-46); HEMOGLOBIN 11.4 g/dL (12.0-16.0); LYMPHOCYTES # (AUTO) 1.9 K/uL (1.0-4.8); LYMPHOCYTES % (AUTO) 17.7 % (22.0-44.0); MEAN CORPUSCULAR HGB CONC 32.7 G/dL (31.0-37.0); MEAN CORPUSCULAR VOLUME 92 fL (80-100); MONOCYTES # (AUTO) 0.7 K/uL (0.1-1.0); MONOCYTES % (AUTO) 6.2 % (2.0-9.0); NEUTROPHILS # (AUTO) 8.2 K/uL (1.8-7.7); NEUTROPHILS % (AUTO) 75.3 % (40.0-70.0); PLATELET COUNT (AUTO) 359 K/uL (150-450); RED CELL DISTRIBUTION WIDTH 16.8 % (11.5-14.5); WHITE BLOOD COUNT (AUTO) 10.9 K/uL (4.5-11.0)
[2023-10-31 14:58] LABS: ANION GAP 8 mmol/L (8-16); CALCIUM, TOTAL 7.9 mg/dL (8.8-10.5); CARBON DIOXIDE 31 mmol/L (22-29); CHLORIDE 101 mmol/L (98-107); CREATININE 0.56 mg/dL (0.60-1.30); GLOMERULAR FILTR. RATE CALC > 60 mL/min (>60); GLUCOSE,RANDOM 168 mg/dL (70-110); POTASSIUM 3.6 mmol/L (3.5-5.1); SODIUM SERUM 140 mmol/L (136-145); UREA NITROGEN, BLOOD 22 mg/dL (7-18)
[2023-10-31 15:04] LABS: ALANINE AMINOTRANSFERASE 39 U/L (12-78); ALKALINE PHOSPHATASE 78 U/L (46-116); ASPARTATE AMINOTRANSFERASE 23 U/L (15-37); BILIRUBIN,TOTAL 0.2 mg/dL (0.1-1.0); TOTAL PROTEIN, SERUM 5.9 g/dL (6.4-8.2)
[2023-11-01 04:25] VITALS: BP 110/63; PULSE 75; RESP 18; TEMP 97.5; O2SAT 94
[2023-11-01 08:26] VITALS: BP 100/53; PULSE 91; RESP 20; TEMP 98.3; O2SAT 96
[2023-11-01 13:57] VITALS: PULSE 90; RESP 20; O2SAT 95
[2023-11-01 14:13] VITALS: PULSE 87; RESP 20; O2SAT 98
[2023-11-01 16:55] VITALS: BP 101/57; PULSE 70; RESP 18; TEMP 98.1; O2SAT 97
[2023-11-01 20:00] VITALS: BP 109/63; PULSE 74; RESP 20; TEMP 97.6; O2SAT 98
[2023-11-02 06:35] VITALS: BP 121/60; PULSE 65; RESP 20; TEMP 98.2; O2SAT 100
[2023-11-02 08:00] VITALS: BP 101/56; PULSE 100; PULSE 73; PULSE 89; RESP 16; RESP 20; TEMP 97.9; O2SAT 94; O2SAT 97
[2023-11-02 09:00] VITALS: PULSE 100; RESP 20; O2SAT 93
[2023-11-02 14:45] VITALS: PULSE 101; RESP 20; O2SAT 93
[2023-11-02 19:51] VITALS: BP 108/52; PULSE 70; RESP 25; TEMP 97.9; O2SAT 94
[2023-11-03 05:49] VITALS: BP 113/60; PULSE 67; RESP 25; TEMP 98.1; O2SAT 94
[2023-11-03 08:12] VITALS: BP 103/56; PULSE 72; RESP 20; TEMP 98.3; O2SAT 98
[2023-11-03 14:00] VITALS: PULSE 86; PULSE 89; RESP 18; O2SAT 94
[2023-11-03 15:38] VITALS: BP 110/62; PULSE 74; RESP 22; TEMP 98.5; O2SAT 97
[2023-11-03 19:55] VITALS: BP 134/69; PULSE 73; RESP 24; TEMP 98; O2SAT 93
[2023-11-03] MEDS: PEG 400/HYPROMELLOSE/GLYCERIN 15 ML OPHTHALMIC SOLUTION OU ONE (20:36)
[2023-11-04 05:46] VITALS: BP 117/58; PULSE 60; RESP 22; TEMP 98.2; O2SAT 97
[2023-11-04 07:57] VITALS: PULSE 67; RESP 18; RESP 20; O2SAT 93
[2023-11-04 08:12] VITALS: PULSE 70; RESP 18; O2SAT 96
[2023-11-04 08:34] VITALS: BP 112/60; PULSE 70; RESP 20; TEMP 98; O2SAT 96
[2023-11-04] MEDS: DiphenhydrAMINE/ZINC ACET 30 GM CREAM TP ONE (19:06)
[2023-11-04 21:00] VITALS: BP 109/62; PULSE 72; RESP 20; TEMP 98.3; O2SAT 94
[2023-11-05] VITALS (8 sets, daily range): BP systolic 98–111; BP diastolic 51–66; PULSE 62–73; RESP 18–22; TEMP 98.1–98.5; O2SAT 90–98
[2023-11-06] VITALS (8 sets, daily range): BP systolic 103–109; BP diastolic 55–66; PULSE 70–75; RESP 18–20; TEMP 98–98.4; O2SAT 94–97
[2023-11-06 07:34] LABS: BASOPHILS % (AUTO) 0.4 % (0.0-2.0); EOSINOPHILS % (AUTO) 2.6 % (1.0-6.0); HEMATOCRIT 34.7 % (36-46); HEMOGLOBIN 11.3 g/dL (12.0-16.0); LYMPHOCYTES # (AUTO) 2.3 K/uL (1.0-4.8); LYMPHOCYTES % (AUTO) 21.9 % (22.0-44.0); MEAN CORPUSCULAR HGB CONC 32.6 G/dL (31.0-37.0); MEAN CORPUSCULAR VOLUME 92 fL (80-100); MONOCYTES # (AUTO) 1.4 K/uL (0.1-1.0); MONOCYTES % (AUTO) 12.9 % (2.0-9.0); NEUTROPHILS # (AUTO) 6.6 K/uL (1.8-7.7); NEUTROPHILS % (AUTO) 62.2 % (40.0-70.0); PLATELET COUNT (AUTO) 395 K/uL (150-450); RED BLOOD CELL COUNT(AUTO) 3.76 MIL/uL (4.00-5.20); RED CELL DISTRIBUTION WIDTH 17.8 % (11.5-14.5); WHITE BLOOD COUNT (AUTO) 10.6 K/uL (4.5-11.0)
[2023-11-06 07:51] LABS: ANION GAP 3 mmol/L (8-16); CALCIUM, TOTAL 8.6 mg/dL (8.8-10.5); CARBON DIOXIDE 36 mmol/L (22-29); CHLORIDE 103 mmol/L (98-107); CREATININE 0.46 mg/dL (0.60-1.30); GLOMERULAR FILTR. RATE CALC > 60 mL/min (>60); GLUCOSE,RANDOM 103 mg/dL (70-110); POTASSIUM 3.6 mmol/L (3.5-5.1); SODIUM SERUM 142 mmol/L (136-145); UREA NITROGEN, BLOOD 18 mg/dL (7-18)
[2023-11-07] VITALS (8 sets, daily range): BP systolic 100–107; BP diastolic 55–67; PULSE 68–80; RESP 16–20; TEMP 97.7–99; O2SAT 95–99
[2023-11-08] VITALS (8 sets, daily range): BP systolic 101–113; BP diastolic 58–68; PULSE 65–77; RESP 18–20; TEMP 97.8–98.4; O2SAT 93–98
[2023-11-08] MEDS: DiphenhydrAMINE/ZINC ACET 30 GM CREAM TP PRN (23:12)
[2023-11-09] VITALS (9 sets, daily range): BP systolic 92–122; BP diastolic 51–81; PULSE 61–78; RESP 18–20; TEMP 97.5–98.3; O2SAT 92–98
[2023-11-10 05:17] VITALS: BP 125/69; PULSE 66; RESP 18; TEMP 97.7; O2SAT 96
[2023-11-10 07:00] VITALS: PULSE 72; RESP 20; O2SAT 95; O2SAT 96
[2023-11-10 14:00] VITALS: PULSE 84; RESP 20; O2SAT 95
[2023-11-10 16:11] VITALS: BP 97/53; PULSE 66; RESP 19; TEMP 96.6; O2SAT 92
[2023-11-10] MEDS: BETAMETHASONE VAL 0.1% 15 GM CREAM TP SCH (16:48)
[2023-11-10] MEDS: BETAMETHASONE VAL 0.1% TP SCH (19:52)
[2023-11-10 19:57] VITALS: BP 101/56; PULSE 67; RESP 18; TEMP 98; O2SAT 95
[2023-11-10 23:44] VITALS: BP 102/55; PULSE 54; RESP 18; TEMP 98.2; O2SAT 97
[2023-11-11] VITALS (8 sets, daily range): BP systolic 99–117; BP diastolic 53–67; PULSE 52–86; RESP 17–20; TEMP 97.8–98; O2SAT 92–98
[2023-11-11] MEDS: MethylPREDNISolone SOD SUCC 125 MG/2 ML VIAL IVP SCH (11:47)
[2023-11-11] MEDS: CETIRIZINE HCL 10 MG TABLET PO SCH (16:30)
[2023-11-11] MEDS: FAMOTIDINE 20 MG/2 ML VIAL IVP SCH (20:23)
[2023-11-11] MEDS: DiphenhydrAMINE HCL 25 MG CAPSULE PO SCH (20:23)
[2023-11-12] VITALS (8 sets, daily range): BP systolic 113–129; BP diastolic 61–67; PULSE 61–75; RESP 18–20; TEMP 97.5–99.6; O2SAT 93–99
[2023-11-12 07:50] LABS: BASOPHILS % (AUTO) 0.1 % (0.0-2.0); EOSINOPHILS % (AUTO) 0 % (1.0-6.0); HEMATOCRIT 33.5 % (36-46); HEMOGLOBIN 10.6 g/dL (12.0-16.0); LYMPHOCYTES # (AUTO) 1.6 K/uL (1.0-4.8); LYMPHOCYTES % (AUTO) 9.4 % (22.0-44.0); MEAN CORPUSCULAR HEMOGLOBIN 29.7 pg (26.0-34.0); MEAN CORPUSCULAR HGB CONC 31.5 G/dL (31.0-37.0); MEAN CORPUSCULAR VOLUME 94 fL (80-100); MONOCYTES # (AUTO) 0.5 K/uL (0.1-1.0); MONOCYTES % (AUTO) 3.3 % (2.0-9.0); NEUTROPHILS # (AUTO) 14.5 K/uL (1.8-7.7); PLATELET COUNT (AUTO) 346 K/uL (150-450); RED BLOOD CELL COUNT(AUTO) 3.55 MIL/uL (4.00-5.20); RED CELL DISTRIBUTION WIDTH 18.9 % (11.5-14.5); WHITE BLOOD COUNT (AUTO) 16.6 K/uL (4.5-11.0)
[2023-11-12 08:07] LABS: ANION GAP 8 mmol/L (8-16); CALCIUM, TOTAL 8.5 mg/dL (8.8-10.5); CARBON DIOXIDE 30 mmol/L (22-29); CHLORIDE 104 mmol/L (98-107); CREATININE 0.68 mg/dL (0.60-1.30); GLOMERULAR FILTR. RATE CALC > 60 mL/min (>60); GLUCOSE,RANDOM 185 mg/dL (70-110); NEUTROPHILS % (AUTO) 87.2 % (40.0-70.0); POTASSIUM 3.9 mmol/L (3.5-5.1); SODIUM SERUM 142 mmol/L (136-145); UREA NITROGEN, BLOOD 23 mg/dL (7-18)
[2023-11-13] VITALS (7 sets, daily range): BP systolic 101–127; BP diastolic 56–65; PULSE 63–69; RESP 19–20; TEMP 98–98.4; O2SAT 95–100
[2023-11-14 06:22] VITALS: BP 118/65; PULSE 53; RESP 20; TEMP 98.3; O2SAT 96
[2023-11-14 08:17] VITALS: BP 125/56; PULSE 54; RESP 14; TEMP 98.5; O2SAT 95
[2023-11-14 08:23] VITALS: PULSE 59; RESP 20; O2SAT 95
[2023-11-14 08:38] VITALS: PULSE 61; RESP 20; O2SAT 98
[2023-11-14] MEDS: PredniSONE 20 MG TABLET PO SCH (09:03)
[2023-11-14] MEDS ORDERED: APIX5TAB PO (18:48)
[2023-11-14] MEDS ORDERED: AMIO200T68 PO (18:48)
[2023-11-14] MEDS ORDERED: BUDE0.5A NEB (18:49)
[2023-11-14] MEDS ORDERED: DIPH-1243 PO (18:51)
[2023-11-14] MEDS ORDERED: CETI-450 PO (18:51)
[2023-11-14] MEDS ORDERED: IPRA0.2S49 NEB (18:54)
[2023-11-14] MEDS ORDERED: METO50 PO (18:55)
[2023-11-14] MEDS ORDERED: LANO113C6 TP (18:56)
[2023-11-14] MEDS ORDERED: ACET-2247 PO (18:59)
== END 2023-11-14 19:09 | DRG 193 ==
LOC: EMS 20:00 → UNDOADMIN 10-02 00:21 → EDH 10-02 00:21 → 5S 10-02 02:18 → ICU 10-05 08:15 → 5S 10-09 17:40 → 4E 10-16 12:10
PROVIDERS: ADMIT Internal Medicine; ATTEND Internal Medicine
PROC: 0HBJXZX Excision of Left Upper Leg Skin, External Approach, Diagnostic (ICD-10-PCS; principal; 2023-10-03)
PROC: 05HA33Z Insertion of Infusion Device into Left Brachial Vein, Percutaneous Approach (ICD-10-PCS; 2023-10-03)
PROC: 5A0935A Assistance with Respiratory Ventilation, Less than 24 Consecutive Hours, High Flow/Velocity Cannula (ICD-10-PCS; 2023-10-04)
PROC: 05H933Z Insertion of Infusion Device into Right Brachial Vein, Percutaneous Approach (ICD-10-PCS; 2023-10-06)
DX: J18.8 Other pneumonia, unspecified organism (principal); E43 Unspecified severe protein-calorie malnutrition; J96.21 Acute and chronic respiratory failure with hypoxia; R53.2 Functional quadriplegia; J44.1 Chronic obstructive pulmonary disease with (acute) exacerbation; L51.1 Stevens-Johnson syndrome; C34.91 Malignant neoplasm of unspecified part of right bronchus or lung; R64 Cachexia; M48.54XA Collapsed vertebra, not elsewhere classified, thoracic region, initial encounter for fracture; I48.92 Unspecified atrial flutter; J44.0 Chronic obstructive pulmonary disease with (acute) lower respiratory infection; L12.0 Bullous pemphigoid; R65.10 Systemic inflammatory response syndrome (SIRS) of non-infectious origin without acute organ dysfunction; J98.4 Other disorders of lung; Z20.822 Contact with and (suspected) exposure to COVID-19; I48.0 Paroxysmal atrial fibrillation; R62.7 Adult failure to thrive; Z66 Do not resuscitate; I10 Essential (primary) hypertension; I08.3 Combined rheumatic disorders of mitral, aortic and tricuspid valves; Z85.118 Personal history of other malignant neoplasm of bronchus and lung; Z87.891 Personal history of nicotine dependence; Z79.899 Other long term (current) drug therapy; Z99.81 Dependence on supplemental oxygen; Z68.20 Body mass index [BMI] 20.0-20.9, adult
CPT/HCPCS: 36245; 36569; 36600; 71045; 71046; 71250; 76937; 80048; 80053; 80162; 81001; 82550; 82805; 82962; 83605; 83735; 83880; 84100; 84132; 84145; 84443; 84484; 85025; 85610; 85730; 87040; 93005; 93306; 94640; 97110; 97116; 97163; 97166; 97530; 97535; 99285; G0378; J0282; J0456; J0696; J1120; J1160; J1200; J1644; J1940; J2060; J2270; J2405; J2543; J2919; J3490; J3535; J7030; J7050; J7060; 36415-L1; 36415-TC; J7512; J7613; Z7610

== ENCOUNTER 2023-12-01 14:39 | Emergency (ER) | payer MEDICAID, OTHER ==
[~2023-12-01] VITALS: Ht 165.1 cm; Wt 60.6 kg
[~2023-12-01 14:39] MED LIST changes: +ACET-2247 PO; +AMIO200T68 PO; +APIX5TAB PO; +BUDE0.5A NEB; +CETI-450 PO; +DIPH-1243 PO; +IPRA0.2S49 NEB; +LANO113C6 TP; +METO50 PO
[2023-12-01 14:50] VITALS: TEMP 98.4
[2023-12-01] MEDS ORDERED: HYDR-4527 PO (14:56)
[2023-12-01] MEDS ORDERED: HYDR-4062 PO (14:57)
[2023-12-01] MEDS ORDERED: DOXY-354 PO (16:38)
[2023-12-01] MEDS: DOXYCYCLINE HYCLATE 100 MG TABLET PO ONE (16:42)
[2023-12-01 16:50] VITALS: BP 126/68; PULSE 69; RESP 18; O2SAT 97
== END 2023-12-01 17:20 | disposition home or self-care (01) ==
LOC: EMS 14:39
DX: L03.115 Cellulitis of right lower limb (principal); J44.9 Chronic obstructive pulmonary disease, unspecified; Z87.891 Personal history of nicotine dependence
CPT/HCPCS: 93971; 99284; Z7502; Z7610

== ENCOUNTER 2024-11-24 19:13 | Inpatient (IN) | payer MEDICARE, MEDICAID ==
[~2024-11-24] VITALS: Ht 165.1 cm; Wt 64.2 kg
[~2024-11-24 19:13] MED LIST changes: -ACET-2247 PO; -AMIO200T68 PO; +AMIO200T73 PO; +BENZ-227 PO; -BUDE0.5A NEB; -CEPH-558 PO; -CETI-450 PO; -DIPH-1243 PO; +DOXYCYCLINE HYCLATE 100 MG in DEXTROSE 5%-WATER 100 ML IV SCH; -FLUT1BLS IH; +HYDR-4062 PO; -HYDR-4268 TP; -LANO113C6 TP; +METO25 PO; -METO50 PO; -OMEP20 PO; +ONDA-104 PO; +PANT-31 PO; -PEMB100V INJ; -PRED-549 PO
[2024-11-24] MEDS: IPRATROPIUM BROMIDE 0.5 MG/2.5 ML NEB SOLUTION NEB ONE (19:42)
[2024-11-24] MEDS: ALBUTEROL SULFATE 2.5 MG/0.5 ML NEB SOLUTION NEB ONE (19:42)
[2024-11-24 19:49] VITALS: PULSE 82; RESP 18; O2SAT 98
[2024-11-24 20:19] LABS: PLATELET COUNT (AUTO) 339 K/uL (150-450); RED BLOOD CELL COUNT(AUTO) 4.36 MIL/uL (4.00-5.20); RED CELL DISTRIBUTION WIDTH 14.4 % (11.5-14.5); WHITE BLOOD COUNT (AUTO) 11.2 K/uL (4.5-11.0)
[2024-11-24 20:21] LABS: CALCIUM, TOTAL 8.7 mg/dL (8.8-10.5); CREATININE 0.37 mg/dL (0.60-1.30); GLOMERULAR FILTR. RATE CALC > 60 mL/min (>60); GLUCOSE,RANDOM 123 mg/dL (70-110); SODIUM SERUM 140 mmol/L (136-145); UREA NITROGEN, BLOOD 12 mg/dL (7-18)
[2024-11-24 20:29] LABS: ASPARTATE AMINOTRANSFERASE 27 U/L (15-37); CREATINE KINASE, TOTAL ONLY 89 U/L (26-192); TOTAL PROTEIN, SERUM 7.3 g/dL (6.4-8.2)
[2024-11-24 20:32] LABS: TROPONIN I-HIGH SENSITIVITY 11 ng/L (<51)
[2024-11-24] MEDS ORDERED: 0.9% SODIUM CHLORIDE 10 ML SYRINGE IVP PRN (20:45)
[2024-11-24] MEDS ORDERED: ONDANSETRON 4 MG TABLET PO PRN (20:45)
[2024-11-24] MEDS ORDERED: ONDANSETRON HCL 4 MG/2 ML VIAL IVP PRN (20:45)
[2024-11-24] MEDS: SODIUM CHLORIDE 0.9% 1,900 ML IV ONE (21:13)
[2024-11-24] MEDS: CefTRIAXone 1 GM/DEXTROSE 50 ML IV SCH (21:13)
[2024-11-24] MEDS: DOCUSATE SODIUM 100 MG CAPSULE PO SCH (21:13)
[2024-11-24] MEDS: METOPROLOL TARTRATE 25 MG TABLET PO SCH (21:14)
[2024-11-24] MEDS: APIXABAN 5 MG TABLET PO SCH (21:14)
[2024-11-24 21:15] LABS: GLUCOSE,RANDOM 118 mg/dL (70-110); LACTATE DEHYDROGENASE 217 U/L (81-234)
[2024-11-24] MEDS ORDERED: CefTRIAXone 1 GM/DEXTROSE 50 ML IV ONE (21:15)
[2024-11-24 21:23] LABS: LACTIC ACID 0.7 mmol/L (0.4-2.0)
[2024-11-24] MEDS: AZITHROMYCIN 500 MG/NS 250 ML IV ONE (21:26)
[2024-11-24 23:54] LABS: TROPONIN I-HIGH SENSITIVITY 14 ng/L (<51)
[2024-11-25] MEDS ORDERED: HEPARIN SODIUM,PORCINE 5,000 UNITS/ML VIAL SQ SCH
[2024-11-25] MEDS: ACETAMINOPHEN 325 MG TABLET PO PRN (00:23)
[2024-11-25 01:09] LABS: APPEARANCE,URINE CLEAR (CLEAR); GLUCOSE, URINE (UA) NEGATIVE (NEGATIVE); LEUKOCYTE ESTERASE ,URINE SMALL (NEGATIVE); NITRATE,URINE NEGATIVE (NEGATIVE); OCCULT BLOOD,URINE NEGATIVE (NEGATIVE); SPECIFIC GRAVITIY, URINE 1.015 (1.003-1.030)
[2024-11-25 01:48] LABS: SQUAMOUS EPITHELIAL CELL,UR Few /LPF (None Seen)
[2024-11-25 05:04] LABS: PLATELET COUNT (AUTO) 286 K/uL (150-450); RED BLOOD CELL COUNT(AUTO) 4.14 MIL/uL (4.00-5.20); RED CELL DISTRIBUTION WIDTH 14.4 % (11.5-14.5); WHITE BLOOD COUNT (AUTO) 6.6 K/uL (4.5-11.0)
[2024-11-25 05:23] LABS: TROPONIN I-HIGH SENSITIVITY 10 ng/L (<51)
[2024-11-25] MEDS: DOXYCYCLINE HYCLATE 100 MG in DEXTROSE 5%-WATER 100 ML IV SCH (07:24)
[2024-11-25] MEDS ORDERED: ZOLPIDEM TARTRATE 5 MG TABLET PO PRN (10:00)
[2024-11-25] MEDS: PANTOPRAZOLE SODIUM 40 MG DR TABLET PO SCH (10:26)
[2024-11-25] MEDS: AMIODARONE HCL 200 MG TABLET PO SCH (10:26)
[2024-11-25 12:50] VITALS: BP 129/75; PULSE 69; RESP 19; TEMP 97.6; O2SAT 97
[2024-11-25 16:11] VITALS: BP 147/69; PULSE 82; RESP 18; TEMP 97.6; O2SAT 96
[2024-11-25] MEDS ORDERED: ALBUTEROL SULFATE 2.5 MG/0.5 ML NEB SOLUTION NEB PRN (19:15)
[2024-11-25] MEDS ORDERED: SODIUM CHLORIDE 0.9% 250 ML IV ONE (19:46)
[2024-11-25] MEDS: ZOLPIDEM TARTRATE 5 MG TABLET PO PRN (20:21)
[2024-11-25 20:51] VITALS: BP 149/72; PULSE 71; RESP 18; TEMP 98.6; O2SAT 97
[2024-11-26 00:15] VITALS: BP 151/72; PULSE 84; RESP 18; TEMP 98.4; O2SAT 97
[2024-11-26 06:45] LABS: PLATELET COUNT (AUTO) 282 K/uL (150-450); RED BLOOD CELL COUNT(AUTO) 3.82 MIL/uL (4.00-5.20); RED CELL DISTRIBUTION WIDTH 14.7 % (11.5-14.5); WHITE BLOOD COUNT (AUTO) 12.3 K/uL (4.5-11.0)
[2024-11-26 06:53] LABS: CALCIUM, TOTAL 8.3 mg/dL (8.8-10.5); CREATININE 0.34 mg/dL (0.60-1.30); GLOMERULAR FILTR. RATE CALC > 60 mL/min (>60); GLUCOSE,RANDOM 173 mg/dL (70-110); SODIUM SERUM 142 mmol/L (136-145); UREA NITROGEN, BLOOD 11 mg/dL (7-18)
[2024-11-26 07:23] VITALS: BP 150/83; PULSE 66; RESP 19; TEMP 98.1; O2SAT 98
[2024-11-26 11:21] VITALS: BP 156/76; PULSE 60; RESP 20; TEMP 98.2; O2SAT 97
[2024-11-26] MEDS: FLUTICASONE/VILANTEROL 200-25 MCG/INH INHALER [14] IH SCH (12:30)
[2024-11-26 15:59] VITALS: BP 150/69; PULSE 69; RESP 19; TEMP 98.2; O2SAT 98
[2024-11-26] MEDS: BENZONATATE 100 MG CAPSULE PO SCH (16:00)
[2024-11-26 19:16] VITALS: BP 155/81; PULSE 73; RESP 20; TEMP 98.6; O2SAT 96
[2024-11-27 00:40] VITALS: BP 136/57; PULSE 64; RESP 19; TEMP 97.7; O2SAT 97
[2024-11-27 06:17] LABS: PLATELET COUNT (AUTO) 277 K/uL (150-450); RED BLOOD CELL COUNT(AUTO) 3.95 MIL/uL (4.00-5.20); RED CELL DISTRIBUTION WIDTH 14.6 % (11.5-14.5); WHITE BLOOD COUNT (AUTO) 9.9 K/uL (4.5-11.0)
[2024-11-27 06:33] LABS: CALCIUM, TOTAL 8.3 mg/dL (8.8-10.5); CREATININE 0.42 mg/dL (0.60-1.30); GLOMERULAR FILTR. RATE CALC > 60 mL/min (>60); GLUCOSE,RANDOM 162 mg/dL (70-110); SODIUM SERUM 142 mmol/L (136-145); UREA NITROGEN, BLOOD 17 mg/dL (7-18)
[2024-11-27 06:35] VITALS: BP 152/65; PULSE 60; RESP 18; TEMP 97.9; O2SAT 99
[2024-11-27 09:09] VITALS: BP 145/68; PULSE 59; RESP 17; TEMP 97.9; O2SAT 99
[2024-11-27 12:43] VITALS: BP 156/74; PULSE 59; RESP 19; TEMP 98.2; O2SAT 98
[2024-11-27] MEDS ORDERED: ALBU18HF12 IH (15:34)
[2024-11-27] MEDS ORDERED: PRED-554 PO (15:34)
[2024-11-27] MEDS ORDERED: AMIO200T73 PO (15:34)
[2024-11-27] MEDS ORDERED: CEPH-558 PO (15:34)
[2024-11-27] MEDS ORDERED: METO25 PO (15:34)
[2024-11-27] MEDS ORDERED: FLUT1BLS15 IH (15:34)
[2024-11-27] MEDS ORDERED: BENZ-227 PO (15:34)
[2024-11-27] MEDS ORDERED: DOXY-354 PO (15:34)
[2024-11-27] MEDS ORDERED: FURO20TA5 PO (15:34)
[2024-11-27] MEDS ORDERED: APIX5TAB PO (15:34)
[2024-11-27 16:43] VITALS: BP 156/66; PULSE 66; RESP 17; TEMP 97.7; O2SAT 97
== END 2024-11-27 18:55 | disposition home health service (06) | DRG 193 ==
LOC: EMS 19:13 → EDH 20:43 → 5N 11-25 09:40
PROVIDERS: ADMIT Internal Medicine; ATTEND Internal Medicine
DX: J18.9 Pneumonia, unspecified organism (principal); I50.33 Acute on chronic diastolic (congestive) heart failure; J96.21 Acute and chronic respiratory failure with hypoxia; J44.1 Chronic obstructive pulmonary disease with (acute) exacerbation; C34.90 Malignant neoplasm of unspecified part of unspecified bronchus or lung; E44.0 Moderate protein-calorie malnutrition; I48.92 Unspecified atrial flutter; J44.0 Chronic obstructive pulmonary disease with (acute) lower respiratory infection; I11.0 Hypertensive heart disease with heart failure; I08.0 Rheumatic disorders of both mitral and aortic valves; I48.0 Paroxysmal atrial fibrillation; G89.29 Other chronic pain; M06.9 Rheumatoid arthritis, unspecified; Z59.82 Transportation insecurity; Z79.899 Other long term (current) drug therapy; Z87.891 Personal history of nicotine dependence; Z68.23 Body mass index [BMI] 23.0-23.9, adult; Z92.3 Personal history of irradiation
CPT/HCPCS: 71045; 80048; 80076; 81001; 82550; 82947; 83605; 83615; 83735; 83880; 84145; 84484; 85025; 85610; 85730; 87040; 93005; 93306; 94060; 94640; 97162; 99285; G0378; J0456; J0696; J2919; J3490; J7030; J7050; J7060; 36415-L1; 36415-TC; J7613